=== PATIENT | male | born 1995 | race Caucasian/White ===

== ENCOUNTER 2022-03-10 15:20 | Emergency (ER) | payer BC, OTHER ==
[~2022-03-10] VITALS: Ht 175.3 cm; Wt 81.6 kg
[2022-03-10 15:44] VITALS: BP_SYST 135
[2022-03-10] MEDS ORDERED: IBUPROFEN 600 MG TABLET PO ONE (18:00)
[2022-03-10] MEDS ORDERED: ACETAMINOPHEN 500 MG TABLET PO ONE (18:00)
--- NOTE | 2022-03-10 18:30 | NUR ---
Pt medicated for pain as ordered, well tolerated
--- NOTE | 2022-03-10 19:30 | NUR ---
Darshan belcher in [facility] - 03/10/22 at 2127 by [email or web address] Pt medicated for pain as ordered, well tolerated .
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
== END 2022-03-10 21:00 | disposition left against medical advice (07) ==
LOC: SED 15:20
DX: M54.2 Cervicalgia (principal); V89.2XXA Person injured in unspecified motor-vehicle accident, traffic, initial encounter; Y93.89 Activity, other specified; Y92.89 Other specified places as the place of occurrence of the external cause; Y99.8 Other external cause status; Z53.21 Procedure and treatment not carried out due to patient leaving prior to being seen by health care provider